=== PATIENT | female | born 1995 | race Caucasian/White ===

== ENCOUNTER 2017-04-18 20:13 | Emergency (ER) | payer OTHER ==
[2017-04-18 20:21] VITALS: BP 130/71; PULSE 90; RESP 20; TEMP 97.8
--- NOTE | 2017-04-18 20:46 | ED ---
ENT HPI - General Chief complaint: Dental/Oral Stated complaint: Dental Pain Time Seen by Provider: 04/18/17 20:24 Source: patient, RN notes reviewed, old records reviewed Mode of arrival: ambulatory Limitations: no limitations - History of Present Illness Initial comments: this is a 21 year old female with CC of right upper wisdom tooth pain that has been chronic, but worse over the past 3 days. She states that she has had her lower wisdom teeth removed, but states that she could not affod to have upper teeth removed. She states that hse has been using orajel over her teeht, but it now feels like there is swelling and pain radiating up towards her sinus and swelling around the gums. Patient reports no pain with jaw movment, denies any fever or chills. - Related Data Home Medications Medication Instructions Recorded Confirmed Levonorgestrel-Ethin Estradiol 1 tab PO DAILY 04/18/17 04/18/17 [Lutera-28 Tablet] Previous Rx's Medication Instructions Recorded Acetaminophen-Codeine 300-30mg 1 tab PO Q8H PRN #15 tablet 04/18/17 [Tylenol #3] Penicillin V Potassium [Pen Vee K] 500 mg PO QID #40 tab 04/18/17 Allergies Allergy/AdvReac Type Severity Reaction Status Date / Time No Known Allergies Allergy Verified 04/18/17 20:48 Review of Systems ROS Statement: Those systems with pertinent positive or pertinent negative responses have been documented in the HPI. ROS Other: All systems not noted in ROS Statement are negative. Past Medical History Past Medical History: No Reported History History of Any Multi-Drug Resistant Organisms: None Reported Past Surgical History: No Surgical Hx Reported Past Psychological History: No Psychological Hx Reported Smoking Status: Current every day smoker Past Alcohol Use History: Occasional Past Drug Use History: None Reported General Exam - General Exam Comments Initial Comments: Well appearing 21 year old female, no distress. Limitations: no limitations General appearance: alert, in no apparent distress Head exam: Present: atraumatic, normocephalic, normal inspection Eye exam: Present: normal appearance, PERRL, EOMI. Absent: scleral icterus, conjunctival injection, periorbital swelling ENT exam: Present: normal exam, mucous membranes moist, TM's normal bilaterally. Absent: normal oropharynx (swelling, erythema, and evidence of compressed right upper wisdom teeth. ) Neck exam: Present: normal inspection. Absent: tenderness, meningismus, lymphadenopathy Respiratory exam: Present: normal lung sounds bilaterally. Absent: respiratory distress, wheezes, rales, rhonchi, stridor Cardiovascular Exam: Present: regular rate, normal rhythm, normal heart sounds. Absent: systolic murmur, diastolic murmur, rubs, gallop, clicks Extremities exam: Present: normal inspection, full ROM, normal capillary refill. Absent: tenderness, pedal edema, joint swelling, calf tenderness Back exam: Present: normal inspection Neurological exam: Present: alert, oriented X3, CN II-XII intact Course Vital Signs 04/18/17 20:19 Temperature 97.8 F Pulse Rate 90 Respiratory 20 Rate Blood Pressure 130/71 O2 Sat by Pulse 100 Oximetry Medical Decision Making - Medical Decision Making This is a 21 year old female with right upper molar pain and wisdom teeth pain. Patient has significant swelling of gums over both teeth, and there appears to be possible begining abscess around right upper wisdom tooth. Patient started on PenVK, given short course of pain medication. Discussed following up with PCP and return to emergency department if any alarming signs or symptoms occur including worsening swelling. Discussed follow up with oral surgeon to have tooth removed. Disposition Clinical Impression: Pain, dental, Dental abscess Disposition: HOME SELF-CARE Condition: Good Instructions: Dental Abscess (ED), Toothache (ED) Additional Instructions: Patient advised to take the medication as prescribed. Recommended follow-up with oral maxilla surgery. Patient should return to the emergency department if any alarming signs or symptoms occur. Take antibiotics and pain medicine as prescribed. You can also use Orajel or Motrin in between. Prescriptions: Acetaminophen-Codeine 300-30mg [Tylenol #3] 1 tab PO Q8H PRN #15 tablet PRN Reason: Pain Penicillin V Potassium [Pen Vee K] 500 mg PO QID #40 tab Referrals: Zuhair Jean MD [Primary Care Provider] - 1-2 days Vu Hernandez DDS [STAFF PHYSICIAN] - 1-2 days Time of Disposition: 20:43
== END 2017-04-18 20:52 | disposition home or self-care (01) ==
LOC: EC 20:13
DX: K04.7 Periapical abscess without sinus (principal); F17.200 Nicotine dependence, unspecified, uncomplicated; Z79.3 Long term (current) use of hormonal contraceptives
CPT/HCPCS: 99283

== ENCOUNTER → 2017-06-08 | Outpatient (CLI) | payer OTHER ==
--- NOTE | 2017-06-08 07:49 | US ---
EXAMINATION TYPE: US OB <= 14 wk fetus DATE OF EXAM: 06/08/2017 COMPARISON: NONE CLINICAL HISTORY: 21-year-old female Z36 CONFIRM DATES; Smoker, Date of LMP: 04/04/2017 Beta HcG (if available): NA EXAM PERFORMED: Transabdominal (TA) FINDINGS: EXAM MEASUREMENTS: GESTATIONAL AGE / DATING Physician Established: ( 9 weeks/2 days) EDC: 01/09/2018 Dates by LMP: (9 weeks/2 days) EDC: 01/09/2018 Dates by First Scan: today Dates by Current Scan for: (9 weeks/0 days +/- 6 days) EDC: 01/11/2018 MATERNAL ANATOMY Uterus: 12.3 x 8.9 x 6.4cm Right Ovary: 1.9 x 2.3 x 1.5cm Left Ovary: not visualized Post CDS / Adnexa: wnl Presence of free fluid: no Presence of corpus luteal cyst: not identified Presence of subchorionic bleed: yes, moderate-sized, along the upper fundal portion of the gestationa l sac measuring = 3.7 x 5.6 x 1.1cm GESTATION / SURVEY CRL: 2.3cm (9 weeks/0 days) Yolk Sac (normal less than 6mm): 2.8mm Heart Rate: 171 bpm, upper limits of normal. Rhythm: Normal IUP: Viable IUP FISH SMOKER NOTES: Single, live IUP,9 weeks/0 days, EDC: 01/11/2018, HR 171bpm, presence of subchorio dalila hemorrhage is noted. IMPRESSION: 1. Single live intrauterine with estimated gestational age of 9 weeks 2 days by LMP. Curren t ultrasound biometry is concordant (9 weeks 0 days). 2. Moderate sized perigestational bleed. 3. heart rate at the upper limits of normal (171 BPM). Short interval follow-up can be consider ed.
[2017-06-08 07:55] LABS: CH 29.9; CHCM 33.1; HCT 39.8 % (34.0-46.0); MCH 29.6 pg (25.0-35.0); MCHC 32.6 g/dL (31.0-37.0); MCV 90.7 fL (80.0-100.0); Mean Platelet Volume 8.9; RBC 4.39 m/uL (3.80-5.40); RDW 13.3 % (11.5-15.5); WBC 9.5 k/uL (3.8-10.6)
[2017-06-08 08:23] LABS: Glucose 86 mg/dL (74-99); Non-African American GFR(MDRD) >60 (>60 ml/min/1.73 sqM)
[2017-06-08 15:36] LABS: Treponemal Ab Non-Reactive (Non-Reactive)
== END | disposition home or self-care (01) ==
LOC: RADUSWWP 07:00
PROVIDERS: ATTEND Obstetrics & Gynecology
DX: Z36.9 Encounter for antenatal screening, unspecified (principal); Z3A.09 9 weeks gestation of pregnancy
CPT/HCPCS: 36415; 76801; 82565; 82947; 85027; 86762; 86777; 86778; 86780; 86850; 86900; 86901; 87340; 87390

== ENCOUNTER → 2017-09-24 | Outpatient (CLI) | payer OTHER ==
[2017-09-24 17:06] LABS: HCT 36.8 % (34.0-46.0); HGB 12.8 gm/dL (11.4-16.0); MCH 31.3 pg (25.0-35.0); MCHC 34.7 g/dL (31.0-37.0); MCV 90.1 fL (80.0-100.0); Mean Platelet Volume 10.1; Platelet Count 156 k/uL (150-450); RBC 4.08 m/uL (3.80-5.40); WBC 10.8 k/uL (3.8-10.6)
== END | disposition home or self-care (01) ==
LOC: LABWHC1 15:49
PROVIDERS: ATTEND Obstetrics & Gynecology
DX: Z34.83 Encounter for supervision of other normal pregnancy, third trimester (principal)
CPT/HCPCS: 36415; 82950; 85027

== ENCOUNTER → 2017-09-29 | Outpatient (CLI) | payer OTHER ==
[2017-09-29 13:04] LABS: Glucose 3 Hour, Gest 44 mg/dL
== END | disposition home or self-care (01) ==
LOC: LABWHC1 08:27
PROVIDERS: ATTEND Obstetrics & Gynecology
DX: O99.810 Abnormal glucose complicating pregnancy (principal); Z3A.00 Weeks of gestation of pregnancy not specified
CPT/HCPCS: 36415; 82951; 82952

== ENCOUNTER 2017-12-24 16:35 | Outpatient (CLI) | payer OTHER ==
[2017-12-24 17:13] VITALS: BP 120/71; PULSE 88; RESP 18; TEMP 98.4
--- NOTE | 2017-12-25 00:08 | P.MSEPDOC ---
Presenting Problems - Arrival Data Date of Arrival on Unit: 12/24/17 Time of Arrival on Unit: 16:40 Mode of Transport: Ambulatory - Complaint OB-Reason for Admission/Chief Complaint: Other Comment: pt arrived c/o lower abd and back cramping all day. pt has been at work. pt unable to time her contractions. denies any leaking of fluid or bleeding Medical History - Information : 2 Para: 1 Term: 1 : 0 Abortions: Spontaneous or Elective: 0 Number of Living Children: 1 - Gestational Age Gestational Age by RASHAAD (wks/days): 37 Weeks and 4 Days - History Complications: Smoker Review of Systems - Review of Systems Constitutional: No problems Breast: No problems ENT: No problems Cardiovascular: No problems Respiratory: No problems Gastrointestinal: No problems Genitourinary: No problems Musculoskeletal: No problems Neurological: No problems Skin: No problems Vital Signs - Temperature Temperature: 98.4 F Temperature Source: Oral - Pulse Right Brachial Pulse Rate: 88 Pulse Assessment Method: Automatic Cuff - Respirations Respiratory Rate: 18 Oxygen Delivery Method: Room Air O2 Sat by Pulse Oximetry: 98 - Blood Pressure Right Arm Blood Pressure: 120/71 Blood Pressure Mean: 87 Blood Pressure Source: Automatic Cuff Medical Screen Scoring (Pre) - Cervical Exam Dilation: 1-3 cm = 1 - Uterine Contractions Frequency: N/A Duration: N/A Intensity: N/A - Maternal Vital Signs Maternal Temperature: N/A Maternal Blood Pressure: N/A Signs of Preeclampsia: N/A Maternal Respirations: N/A - Pain Assessment Pain Location and Character: Abdomen Pain Scale Used: Numeric (1 - 10) Pain Intensity: 5 Pain Management Goal: 2 Pain Description: Cramping Pain Radiation Location: n/a Pain Frequency: Intermittent Pain Duration: 15 Pain Duration Units: Minutes Pain Behavior: Vocalization Pain Aggravating Factors: Walking - Maternal Trauma Maternal Trauma: N/A - Assessment Baseline FHR: 130 Heart Rate - NICHD Category: Category I (Normal) = 0 NST: Reactive Position: N/A Station: N/A - Total Score Total Score (Pre): 1 Medical Screen Scoring (Post) - Cervical Exam Dilation: 1-3 cm = 1 Effacement: More than 50% = 2 Membranes: Intact - Uterine Contractions Frequency: N/A Duration: N/A Intensity: N/A - Maternal Vital Signs Maternal Temperature: N/A Maternal Blood Pressure: N/A Signs of Preeclampsia: N/A Maternal Respirations: N/A - Maternal Trauma Maternal Trauma: N/A - Assessment Heart Rate: 130 Heart Rate - NICHD Category: Category I (Normal) = 0 NST: Reactive Position: N/A Station: N/A - Total Score Total Score (Post): 3 - Post Treatment Level of Risk Post Treatment Level of Risk: Low (0-5) Physician Notification (Post) - Physician Notified Physician Notified Date: 12/24/17 Physician Notified Time: 17:39 Spoke With: dr collins New Order Received: Yes - Notification Comment Comment: november discharge to home Disposition - Disposition OB Disposition: Discharge to home Discharge Date: 12/24/17 Discharge Time: 17:39 I agree with the RN Medical Screening Exam: Yes Risk & Benefit of care provided described in d/c instruction: Yes Diagnosis: FALSE LABOR AT OR AFTER 37 COMPLETED WEEKS OF GESTATION
== END 2017-12-24 17:39 | disposition home or self-care (01) ==
LOC: FBPOP 16:35
PROVIDERS: ATTEND Obstetrics & Gynecology
DX: O47.1 False labor at or after 37 completed weeks of gestation (principal); Z3A.37 37 weeks gestation of pregnancy
CPT/HCPCS: 59025; G0463; 99213

== ENCOUNTER 2018-01-03 13:31 | Outpatient (CLI) | payer OTHER ==
[2018-01-03 13:58] VITALS: BP 127/75; PULSE 97; RESP 18; TEMP 97
--- NOTE | 2018-01-03 18:36 | P.MSEPDOC ---
Presenting Problems - Arrival Data Date of Arrival on Unit: 01/03/18 Time of Arrival on Unit: 13:32 Mode of Transport: Ambulatory - Complaint OB-Reason for Admission/Chief Complaint: Rule Out SROM Medical History - Information : 2 Para: 1 Term: 1 : 0 Abortions: Spontaneous or Elective: 0 Number of Living Children: 1 - Gestational Age Gestational Age by RASHAAD (wks/days): 39 Weeks and 0 Days Review of Systems - Review of Systems Constitutional: No problems Breast: No problems ENT: No problems Cardiovascular: No problems Respiratory: No problems Gastrointestinal: No problems Genitourinary: No problems Musculoskeletal: No problems Neurological: No problems Skin: No problems Vital Signs - Temperature Temperature: 97 F Temperature Source: Temporal Artery Scan - Pulse Right Brachial Pulse Rate: 97 - Respirations Respiratory Rate: 18 Oxygen Delivery Method: Room Air - Blood Pressure Right Arm Blood Pressure: 127/75 Blood Pressure Mean: 92 Blood Pressure Source: Automatic Cuff Medical Screen Scoring (Pre) - Cervical Exam Dilation: Exam Deferred Effacement: Exam Deferred Membranes: Intact - Uterine Contractions Frequency: > 5 minutes apart = 1 Duration: > 40 seconds = 2 Intensity: N/A - Maternal Vital Signs Maternal Temperature: N/A Maternal Blood Pressure: N/A Signs of Preeclampsia: N/A Maternal Respirations: N/A - Pain Assessment Pain Scale Used: Numeric (1 - 10) Pain Intensity: 0 - Assessment Baseline FHR: 115 Heart Rate - NICHD Category: Category I (Normal) = 0 NST: Reactive Position: N/A Station: N/A - Total Score Total Score (Pre): 3 - Level of Risk Level of Risk: Low (0-5) Medical Screen Scoring (Post) - Cervical Exam Membranes: Intact - Total Score Total Score (Post): 0 - Post Treatment Level of Risk Post Treatment Level of Risk: Low (0-5) Physician Notification (Post) - Physician Notified Physician Notified Date: 01/03/18 Physician Notified Time: 14:05 Physician/Practitioner Notified:: Miranda Spoke With: Miranda Rodriguez Order Received: Yes (discharge to home) - Notification Comment Comment: amnisure negative, reactive nst Disposition - Disposition OB Disposition: Triage Discharge Date: 01/03/18 Discharge Time: 14:10 I agree with the RN Medical Screening Exam: Yes Risk & Benefit of care provided described in d/c instruction: Yes Diagnosis: FALSE LABOR AT OR AFTER 37 COMPLETED WEEKS OF GESTATION
== END 2018-01-03 14:10 | disposition home or self-care (01) ==
LOC: FBPOP 13:31
PROVIDERS: ATTEND Obstetrics & Gynecology
DX: O47.1 False labor at or after 37 completed weeks of gestation (principal); Z3A.39 39 weeks gestation of pregnancy
CPT/HCPCS: 59025; 84112; G0463; 99213

== ENCOUNTER 2018-01-04 14:45 | Inpatient (IN) | payer OTHER ==
[2018-01-04] MEDS ORDERED: CARBOPROST TROMETHAMINE 250 MCG/ML 1 ML AMP IM PRN (15:10)
[2018-01-04] MEDS ORDERED: OXYTOCIN 10 UNIT/ML 1 ML VIAL IM PRN (15:10)
[2018-01-04] MEDS ORDERED: TERBUTALINE 1 MG/ML VIAL SQ PRN (15:10)
[2018-01-04] MEDS ORDERED: METHYLERGONOVINE 0.2 MG/ML 1 ML AMP IM PRN (15:10)
[2018-01-04] MEDS ORDERED: LIDOCAINE 1% (PF) 10 MG/ML (30 ML SDV) SQ PRN (15:10)
[2018-01-04] MEDS ORDERED: OXYTOCIN 20 UNITS/1000 ML NS 1,000 ML IV SCH ×2 (15:15→17:44)
[2018-01-04] MEDS: LACTATED RINGERS 1,000 ML IV SCH ×2 (15:23→16:04)
[2018-01-04 15:28] LABS: Basophils % (A) 0 %; Eosinophils # (A) 0.1 k/uL (0-0.7); Eosinophils % (A) 1 %; HCT 40.4 % (34.0-46.0); HGB 13.7 gm/dL (11.4-16.0); Lymphocytes # (A) 2.4 k/uL (1.0-4.8); Lymphocytes % (A) 21 %; MCH 30.7 pg (25.0-35.0); MCHC 33.8 g/dL (31.0-37.0); MCV 90.7 fL (80.0-100.0); Mean Platelet Volume 11.4; Monocytes # (A) 0.5 k/uL (0-1.0); Monocytes % (A) 5 %; Neutrophils # (A) 8.3 k/uL (1.3-7.7); Neutrophils % (A) 72 %; Platelet Count 139 k/uL (150-450); RBC 4.46 m/uL (3.80-5.40); RDW 13.8 % (11.5-15.5); WBC 11.5 k/uL (3.8-10.6)
[2018-01-04] MEDS ORDERED: fentaNYL (PF) 50 MCG/ML 5 ML AMP ONE (15:33)
[2018-01-04] MEDS ORDERED: BUPIVACAINE (PF) 0.25% 30 ML VIAL ONE (15:33)
[2018-01-04] MEDS ORDERED: SODIUM CHLORIDE 0.9% 100 ML BAG ONE (15:33)
[2018-01-04 15:34] VITALS: BMI 38.4
[2018-01-04 15:59] LABS: Large Platelets Present
--- NOTE | 2018-01-04 17:02 | P.HPOB ---
History of Present Illness H&P Date: 01/04/18 Chief Complaint: Contractions This is a 22-year-old female 2 para 1 with an estimated date of confinement of 01/10/2018, estimated gestational age of 39 and one sevenths weeks, who presents to labor and delivery with complaints of contractions that began last night and became stronger today. Her care has been with Dr. Frankel and has been uncomplicated per patient. She denies any rupture of membranes. labs: GC/chlamydia-negative Toxoplasma screen-negative Random glucose-86 Hemoglobin-13 Hepatitis B surface antigen-nonreactive HIV-nonreactive Rubella-immune Syphilis antibody-negative Blood type-A+ Antibody screen-negative Paternity T 21-negative Obstetrical ultrasound-normal anatomy One hour Glucola-163 Three-hour Glucola-within normal limits Group B streptococcus-negative Obstetrical history: . History of 1 vaginal delivery. Review of Systems Constitutional: Denies chills, Denies fever Eyes: denies blurred vision, denies pain Ears, nose, mouth and throat: Denies headache, Denies sore throat Cardiovascular: Denies chest pain, Denies shortness of breath Respiratory: Denies cough Gastrointestinal: Reports abdominal pain (Contractions) Genitourinary: Reports pelvic pain, Reports Musculoskeletal: Reports low back pain Integumentary: Denies pruritus, Denies rash Neurological: Denies numbness, Denies weakness Psychiatric: Denies anxiety, Denies depression Past Medical History Past Medical History: No Reported History History of Any Multi-Drug Resistant Organisms: None Reported Past Surgical History: No Surgical Hx Reported Past Anesthesia/Blood Transfusion Reactions: No Reported Reaction Past Psychological History: No Psychological Hx Reported Smoking Status: Current every day smoker Past Alcohol Use History: Occasional Past Drug Use History: None Reported - Past Family History Mother Family Medical History: No Reported History Medications and Allergies Home Medications Medication Instructions Recorded Confirmed Type Pnv No.95/Ferrous Fum/Folic AC 1 tab PO DAILY 12/24/17 01/04/18 History [ Multivitamin Tablet] Allergies Allergy/AdvReac Type Severity Reaction Status Date / Time No Known Allergies Allergy Verified 01/04/18 14:48 Exam Osteopathic Statement: *. No significant issues noted on an osteopathic structural exam other than those noted in the History and Physical/Consult. - Vital Signs Vital signs: Vital Signs Temp Pulse Resp 01/04/18 15:24 96 F L 85 18 Intake and Output 01/04/18 01/04/18 01/04/18 06:59 14:59 22:59 Other: Weight 101.605 kg 101.605 kg HEENT: Within normal limits Heart: Regular rate and rhythm Lungs: Clear to auscultation bilaterally Abdomen: Cervix: Initially was 7 cm on admission to triage and currently is 9 cm/100%/-1 station. Artificial rupture membranes is carried out with clear fluid noted. heart tones: Reactive Contractions: Every 2-3 minutes Extremities: Negative Homans Results Result Diagrams: 01/04/18 15:10 Abnormal Lab Results - Last 24 Hours (Table) 01/04/18 Range/Units 15:10 WBC 11.5 H (3.8-10.6) k/uL Plt Count 139 L (150-450) k/uL Neutrophils # 8.3 H (1.3-7.7) k/uL Assessment and Plan (1) 39 weeks gestation of Current Visit: Yes Status: Acute Code(s): Z3A.39 - 39 WEEKS GESTATION OF SNOMED Code(s): 65263614 Plan: Admission for active labor. Epidural anesthesia. Expectant management.
--- NOTE | 2018-01-04 17:37 | P.PROBDLV ---
Vaginal Delivery Note - . Vaginal Delivery Note: The patient progressed rather rapidly to complete dilation after artificial rupture of membranes with clear fluid noted. She did receive epidural anesthesia. Once reaching complete, she began pushing. 's head came to a crown. 's head delivered across the perineum followed by the anterior shoulder in a right occiput anterior lie. Nose and mouth were bulb suctioned at the perineum. Infant was placed on mother's abdomen after delivery of the remainder the infant. Cord was clamped and cut and infant was taken to warmer for evaluation. A viable female was noted with scores of 9 at 1 minute and 9 at 5 minutes. weight is pending at this time. Placenta delivered shortly thereafter, intact, with a three-vessel cord. Uterus contracted well after oxytocin was given and uterine massage was carried out. Inspection of the perineum revealed bilateral periurethral abrasions that were noted to be hemostatic. Estimated blood loss is approximately 100 mL's. Both mother and infant are in stable condition.
[2018-01-04] MEDS ORDERED: WITCH HAZEL 1 EACH MED..PAD TOPICAL PRN (17:44)
[2018-01-04] MEDS ORDERED: diphenhydrAMINE 50 MG/ML 1 ML VIAL IVP PRN ×2 (17:44)
[2018-01-04] MEDS ORDERED: LANOLIN CREAM 5 GM TUBE TOPICAL PRN (17:44)
[2018-01-04] MEDS ORDERED: HYDROCORTISONE 2.5% RECTAL CREAM 30 GM TUBE RECTAL PRN (17:44)
[2018-01-04] MEDS ORDERED: ZOLPIDEM 5 MG TAB PO PRN (17:44)
[2018-01-04] MEDS ORDERED: diphenhydrAMINE 50 MG CAP PO PRN (17:44)
[2018-01-04] MEDS ORDERED: SIMETHICONE 80 MG CHEWABLE PO PRN (17:44)
[2018-01-04] MEDS ORDERED: BENZOCAINE/MENTHOL SPRAY 1 GM/SPRAY AEROSOL TOPICAL PRN (17:44)
[2018-01-04] MEDS ORDERED: diphenhydrAMINE 25 MG CAP PO PRN (17:44)
[2018-01-04] MEDS: IBUPROFEN 600 MG TAB PO PRN (21:14)
[2018-01-04] MEDS: SENNOSIDES-DOCUSATE SODIUM 1 EACH TAB PO SCH (21:15)
[2018-01-05] MEDS: ACETAMINOPHEN TAB 325 MG TAB PO PRN ×2 (00:25→12:31)
[2018-01-05] MEDS: IBUPROFEN 600 MG TAB PO PRN ×2 (06:33→18:10)
[2018-01-05 06:41] LABS: Basophils % (A) 0 %; Eosinophils # (A) 0.3 k/uL (0-0.7); Eosinophils % (A) 2 %; HCT 37.5 % (34.0-46.0); HGB 12.8 gm/dL (11.4-16.0); Lymphocytes # (A) 2.6 k/uL (1.0-4.8); Lymphocytes % (A) 23 %; MCHC 34.1 g/dL (31.0-37.0); Mean Platelet Volume 11.6; Monocytes # (A) 0.5 k/uL (0-1.0); Monocytes % (A) 4 %; Neutrophils # (A) 8.1 k/uL (1.3-7.7); Neutrophils % (A) 70 %; Platelet Count 119 k/uL (150-450); RBC 4.12 m/uL (3.80-5.40); RDW 13.7 % (11.5-15.5); WBC 11.6 k/uL (3.8-10.6)
[2018-01-05 07:00] LABS: Large Platelets Present
--- NOTE | 2018-01-05 07:13 | P.DS ---
Providers Date of admission: 01/04/18 15:06 Expected date of discharge: 01/05/18 Attending physician: Cathy Frankel Primary care physician: Stated None - Discharge Diagnosis(es) (1) Normal vaginal delivery Current Visit: Yes Status: Acute Hospital Course: Pt presented in active labor. She underwent a normal vaginal delivery. HEr pp course was uncomplicated. She will be discharged home PPD #1 in stable condition to follow up with me in 6 weeks. Plan - Discharge Summary Discharge Rx Participant: No New Discharge Prescriptions: New Ibuprofen [Motrin] 600 mg PO Q6HR PRN #30 tab PRN Reason: Mild Pain Or Fever >= 100.5 No Action Pnv No.95/Ferrous Fum/Folic AC [ Multivitamin Tablet] 1 tab PO DAILY Discharge Medication List Pnv No.95/Ferrous Fum/Folic AC [ Multivitamin Tablet] 1 tab PO DAILY 03/05 [History] Ibuprofen [Motrin] 600 mg PO Q6HR PRN #30 tab 01/05/18 [Rx] Follow up Appointment(s)/Referral(s): Cathy Frankel DO [Doctor of Osteopathic Medicine] - 6 Weeks Discharge Disposition: HOME SELF-CARE
[2018-01-05] MEDS: SENNOSIDES-DOCUSATE SODIUM 1 EACH TAB PO SCH (07:35)
[2018-01-05 16:52] VITALS: BP 119/83; PULSE 76; RESP 16; TEMP 98.6
== END 2018-01-05 19:00 | disposition home or self-care (01) | DRG 775 ==
LOC: FBPOP 14:45 → 4FBP 15:06
PROVIDERS: ADMIT Obstetrics & Gynecology; ATTEND Obstetrics & Gynecology
PROC: 3E0R3NZ Introduction of Analgesics, Hypnotics, Sedatives into Spinal Canal, Percutaneous Approach (ICD-10-PCS; principal; 2018-01-04)
PROC: 10E0XZZ Delivery of Products of Conception, External Approach (ICD-10-PCS; principal; 2018-01-04)
PROC: 10907ZC Drainage of Amniotic Fluid, Therapeutic from Products of Conception, Via Natural or Artificial Opening (ICD-10-PCS; principal; 2018-01-04)
PROC: 00HU33Z Insertion of Infusion Device into Spinal Canal, Percutaneous Approach (ICD-10-PCS; principal; 2018-01-04)
DX: O99.334 Smoking (tobacco) complicating childbirth (principal); Z37.0 Single live birth; F17.200 Nicotine dependence, unspecified, uncomplicated; Z3A.39 39 weeks gestation of pregnancy
CPT/HCPCS: 59025; 85025; 99213

== ENCOUNTER → 2018-09-14 | Outpatient (CLI) | payer OTHER ==
--- NOTE | 2018-09-14 09:17 | US ---
EXAMINATION TYPE: Transabdominal DATE OF EXAM: 09/14/2018 8:58 AM COMPARISON: NONE CLINICAL HISTORY: Z36 Confirm dates. Confirm Dates, pt has no complaints at this time EXAM PERFORMED: Transvaginal (TV) and Transabdominal (TA) EXAM MEASUREMENTS: GESTATIONAL AGE / DATING Physician Established: Not yet established Dates by LMP: (8 weeks/0 days) EDC: 04/26/2019 Dates by First Scan: No prior Dates by Current Scan for: (8 weeks/0 days) EDC: 04/26/2019 MATERNAL ANATOMY Uterus: 9.4 x 6.5 x 8.2 cm Right Ovary: 3.7 x 2.1 x 2.2 cm Left Ovary: 2.8 x 1.9 x 2.6 cm Post CDS / Adnexa: wnl Presence of free fluid: No Presence of corpus luteal cyst: Right Ovary= 2.2 x 2.0 x 1.9 cm Presence of subchorionic bleed: No GESTATION / SURVEY CRL: 1.7 cm (8 weeks/0 days) MSD: wnl Yolk Sac (normal less than 6mm): 3mm Heart Rate: 161 bpm Rhythm: Normal IUP: Viable IUP Date of LMP: 07/20/2018 Single, viable IUP/ No abnormality visualized at this time IMPRESSION: Single viable intrauterine of 8 weeks 0 days with a heart rate 161.
== END | disposition home or self-care (01) ==
LOC: RADUSWWP 08:28
PROVIDERS: ATTEND Obstetrics & Gynecology
DX: Z36.89 Encounter for other specified antenatal screening (principal)
CPT/HCPCS: 76801; 76817

== ENCOUNTER 2019-04-16 14:23 | Outpatient (CLI) | payer OTHER ==
[2019-04-16 15:46] VITALS: BP 105/62; PULSE 84; RESP 16; TEMP 98.4
--- NOTE | 2019-05-06 08:33 | P.MSEPDOC ---
Presenting Problems - Arrival Data Date of Arrival on Unit: 04/16/19 Time of Arrival on Unit: 14:34 Mode of Transport: Ambulatory - Complaint OB-Reason for Admission/Chief Complaint: Other Comment: pt arrived c/o losing her mucus plug a few days ago and c/o feeling like an air bubble in her vaginal area. pt denies any bleeding or leaking of fluid Medical History - Information : 3 Para: 2 Term: 2 : 0 Abortions: Spontaneous or Elective: 0 Number of Living Children: 2 - Gestational Age Gestational Age by RASHAAD (wks/days): 38 Weeks and 4 Days - History Complications: Smoker Review of Systems - Review of Systems Constitutional: No problems Breast: No problems ENT: No problems Cardiovascular: No problems Respiratory: No problems Gastrointestinal: No problems Genitourinary: No problems Musculoskeletal: No problems Neurological: No problems Skin: No problems Vital Signs - Temperature Temperature: 98.4 F Temperature Source: Oral - Pulse Right Brachial Pulse Rate: 84 Pulse Assessment Method: Automatic Cuff - Respirations Respiratory Rate: 16 Oxygen Delivery Method: Room Air O2 Sat by Pulse Oximetry: 97 - Blood Pressure Right Arm Blood Pressure: 105/62 Blood Pressure Mean: 76 Blood Pressure Source: Automatic Cuff Medical Screen Scoring (Pre) - Cervical Exam Dilation: 1-3 cm = 1 Effacement: More than 50% = 2 Membranes: Intact - Uterine Contractions Frequency: > 5 minutes apart = 1 Duration: N/A Intensity: N/A - Maternal Vital Signs Maternal Temperature: N/A Maternal Blood Pressure: N/A Signs of Preeclampsia: N/A Maternal Respirations: N/A - Maternal Trauma Maternal Trauma: N/A - Assessment - Baby A Baseline FHR: 130 Heart Rate - NICHD Category: Category I (Normal) = 0 NST: Reactive Position: N/A Station: N/A - Total Score - Baby A Total Score - Baby A: 4 - Total Score - Baby B Total Score - Baby B: 4 - Total Score - Baby C Total Score - Baby C: 4 - Level of Risk - Baby A Level of Risk - Baby A: Low (0-5) - Level of Risk - Baby B Level of Risk - Baby B: Low (0-5) - Level of Risk - Baby C Level of Risk - Baby C: Low (0-5) Physician Notification (Post) - Physician Notified Physician Notified Date: 04/16/19 Physician Notified Time: 15:30 Spoke With: Dr. Quiles New Order Received: Yes - Notification Comment Comment: may discharge to home undelivered with instructions Disposition - Disposition OB Disposition: Discharge to home Discharge Date: 04/16/19 Discharge Time: 15:45 I agree with the RN Medical Screening Exam: Yes Risk & Benefit of care provided described in d/c instruction: Yes Diagnosis: FALSE LABOR AT OR AFTER 37 COMPLETED WEEKS OF GESTATION
== END 2019-04-16 15:45 | disposition home or self-care (01) ==
LOC: FBPOP 14:23
PROVIDERS: ATTEND Obstetrics & Gynecology
DX: O47.1 False labor at or after 37 completed weeks of gestation (principal); O99.333 Smoking (tobacco) complicating pregnancy, third trimester; F17.200 Nicotine dependence, unspecified, uncomplicated; Z3A.38 38 weeks gestation of pregnancy
CPT/HCPCS: 59025; G0463; 99213

== ENCOUNTER 2019-04-24 06:08 | Inpatient (IN) | payer OTHER ==
[2019-04-24] MEDS ORDERED: LIDOCAINE 0.5% (PF) 5 MG/ML (50 ML SDV) SQ PRN (06:35)
[2019-04-24] MEDS ORDERED: OXYTOCIN 10 UNIT/ML 1 ML VIAL IM PRN (06:35)
[2019-04-24] MEDS ORDERED: METHYLERGONOVINE 0.2 MG/ML 1 ML AMP IM PRN (06:35)
[2019-04-24] MEDS ORDERED: TERBUTALINE 1 MG/ML VIAL SQ PRN (06:35)
[2019-04-24] MEDS ORDERED: CARBOPROST TROMETHAMINE 250 MCG/ML 1 ML AMP IM PRN (06:35)
[2019-04-24 06:45] VITALS: BMI 37.0
[2019-04-24] MEDS ORDERED: OXYTOCIN 30 UNITS/500 ML NS 30 UNIT in SALINE 1 500ML.BAG IV SCH (06:45)
[2019-04-24 06:51] LABS: Basophils # (A) 0.1 k/uL (0-0.2); Basophils % (A) 1 %; Eosinophils # (A) 0.2 k/uL (0-0.7); Eosinophils % (A) 2 %; HCT 39.8 % (34.0-46.0); HGB 12.5 gm/dL (11.4-16.0); Lymphocytes # (A) 2.6 k/uL (1.0-4.8); Lymphocytes % (A) 25 %; MCH 29.8 pg (25.0-35.0); MCHC 31.5 g/dL (31.0-37.0); MCV 94.6 fL (80.0-100.0); Mean Platelet Volume 11.8; Monocytes # (A) 0.6 k/uL (0-1.0); Monocytes % (A) 6 %; Neutrophils # (A) 6.7 k/uL (1.3-7.7); Neutrophils % (A) 65 %; Platelet Count 189 k/uL (150-450); RDW 13.8 % (11.5-15.5); WBC 10.4 k/uL (3.8-10.6)
[2019-04-24] MEDS: LACTATED RINGERS 1,000 ML IV SCH ×2 (06:55→09:34)
[2019-04-24] MEDS ORDERED: SODIUM CHLORIDE 0.9% 100 ML BAG ONE (09:16)
[2019-04-24] MEDS ORDERED: fentaNYL (PF) 50 MCG/ML 5 ML AMP ONE (09:16)
[2019-04-24] MEDS ORDERED: ROPIVACAINE 5MG/ML 20ML VIAL ONE (09:16)
--- NOTE | 2019-04-24 12:19 | P.HPOB ---
History of Present Illness H&P Date: 04/24/19 Chief Complaint: Induction of LAbor 23-year-old presents at 39 weeks and 5 days for induction of labor. Her cervix is 2cm dilated, 70% effaced, and -2 station. She is dania irregularly. heart tones 130 with moderate variability and reactive. Review of Systems All systems: negative Constitutional: Denies chills, Denies fever Eyes: denies blurred vision, denies pain Ears, nose, mouth and throat: Denies headache, Denies sore throat Cardiovascular: Denies chest pain, Denies shortness of breath Respiratory: Denies cough Gastrointestinal: Denies abdominal pain, Denies diarrhea, Denies nausea, Denies vomiting Genitourinary: Denies dysuria, Denies hematuria Musculoskeletal: Denies myalgias Integumentary: Denies pruritus, Denies rash Neurological: Denies numbness, Denies weakness Psychiatric: Denies anxiety, Denies depression Endocrine: Denies fatigue, Denies weight change Past Medical History Past Medical History: No Reported History Additional Past Medical History / Comment(s): Obstetric history: She's had 2 previous vaginal deliveries. This is her third . She's had care with me since the first trimester. Blood type A+, antibody is negative, rubella immune, hepatitis B-, HIV nonreactive, RPR nonreactive, GBS negative. History of Any Multi-Drug Resistant Organisms: None Reported Past Surgical History: No Surgical Hx Reported Past Anesthesia/Blood Transfusion Reactions: No Reported Reaction Past Psychological History: No Psychological Hx Reported Smoking Status: Current every day smoker Past Alcohol Use History: None Reported Past Drug Use History: None Reported - Past Family History Mother Family Medical History: No Reported History Father Additional Family Medical History / Comment(s): degenerative lumbar disk Medications and Allergies Home Medications Medication Instructions Recorded Confirmed Type Pnv No.95/Ferrous Fum/Folic AC 1 tab PO DAILY 12/24/17 04/24/19 History [ Multivitamin Tablet] Allergies Allergy/AdvReac Type Severity Reaction Status Date / Time No Known Allergies Allergy Verified 04/24/19 11:51 Exam Osteopathic Statement: *. No significant issues noted on an osteopathic struct ural exam other than those noted in the History and Physical/Consult. Vital Signs Temp Pulse Resp BP Pulse Ox 04/24/19 06:34 97.7 F 87 18 105/65 99 Intake and Output 04/23/19 04/24/19 04/24/19 22:59 06:59 14:59 Other: Weight 97.976 kg Heart: Regular rate and rhythm Lungs: Clear to auscultation bilaterally Abdomen: Soft, nontender Extremities: Negative Homans sign Results Result Diagrams: 04/24/19 06:45 Assessment and Plan (1) Normal labor Current Visit: Yes Status: Acute Code(s): O80 - ENCOUNTER FOR FULL-TERM UNCOMPLICATED DELIVERY; Z37.9 - OUTCOME OF DELIVERY, UNSPECIFIED SNOMED Code(s): 76652284 Plan: 1. Induction of labor with amniotomy and Pitocin 2. Anticipate normal vaginal delivery
[2019-04-24] MEDS ORDERED: diphenhydrAMINE 50 MG CAP PO PRN (12:20)
[2019-04-24] MEDS ORDERED: diphenhydrAMINE 50 MG/ML 1 ML VIAL IVP PRN ×2 (12:20)
[2019-04-24] MEDS ORDERED: ACETAMINOPHEN TAB 325 MG TAB PO PRN (12:20)
[2019-04-24] MEDS ORDERED: SIMETHICONE 80 MG CHEWABLE PO PRN (12:20)
[2019-04-24] MEDS ORDERED: ZOLPIDEM 5 MG TAB PO PRN (12:20)
[2019-04-24] MEDS ORDERED: WITCH HAZEL 1 EACH MED..PAD TOPICAL PRN (12:20)
[2019-04-24] MEDS ORDERED: BENZOCAINE/MENTHOL SPRAY 1 GM/SPRAY AEROSOL TOPICAL PRN (12:20)
[2019-04-24] MEDS ORDERED: LANOLIN CREAM 5 GM TUBE TOPICAL PRN (12:20)
[2019-04-24] MEDS ORDERED: diphenhydrAMINE 25 MG CAP PO PRN (12:20)
[2019-04-24] MEDS ORDERED: HYDROCORTISONE 2.5% RECTAL CREAM 30 GM TUBE RECTAL PRN (12:20)
--- NOTE | 2019-04-24 12:20 | P.PROBDLV ---
Vaginal Delivery Note - . Vaginal Delivery Note: 23-year-old presents at 39 weeks and 5 days for induction of labor. Her cervix is 2cm dilated, 70% effaced, and -2 station. She is dania irregularly. heart tones 130 with moderate variability and reactive. Amniotomy was performed after 7:30 in the morning. Pitocin had also been started. She progressed and did get an epidural. Her cervix was completely dilated at 11:55 AM. She pushed, and delivered a viable female infant over intact perineum under epidural anesthesia at 1207. Head delivered OA, anterior shoulder delivered gentle downward guidance followed by posterior shoulder and rest of body. Nose and mouth bulb suctioned, cord clamped and cut, placed mother's abdomen. Apgars 9, 9, weight 7 lbs. 12 oz. Placenta delivered spontaneously, intact with three-vessel cord at total 9. Vagina, cervix, perineum inspected. A left lateral first-degree laceration was repaired with a [id number] stitch of 3-0 Vicryl. A right periurethral laceration was repaired with 3-0 Vicryl. Estimated blood loss 200 mL mother and baby in stable condition.
[2019-04-24] MEDS ORDERED: OXYTOCIN 20 UNITS/1000 ML NS 1,000 ML IV SCH (12:30)
[2019-04-24 12:53] VITALS: RESP 16
[2019-04-24] MEDS: IBUPROFEN 600 MG TAB PO PRN ×2 (15:15→21:32)
[2019-04-25] MEDS: SENNOSIDES-DOCUSATE SODIUM 1 EACH TAB PO SCH ×2 (02:32→10:01)
--- NOTE | 2019-04-25 06:35 | P.DS ---
Providers Date of admission: 04/24/19 06:08 Expected date of discharge: 04/25/19 Attending physician: Cathy Frankel Primary care physician: Stated None - Discharge Diagnosis(es) (1) Normal labor Current Visit: Yes Status: Resolved (2) Normal vaginal delivery Current Visit: No Status: Acute Hospital Course: Pt presented for induction of labor. She underwent a normal vaginal delivery without complication. HEr pp course was uneventful. She will be discharged home PPD #1 in stable condition to follow up with me in 6 weeks. Plan - Discharge Summary New Discharge Prescriptions: New Ibuprofen [Motrin] 600 mg PO Q6HR PRN #30 tab PRN Reason: Mild Pain Or Fever >= 100.5 No Action Pnv No.95/Ferrous Fum/Folic AC [ Multivitamin Tablet] 1 tab PO DAILY Discharge Medication List Pnv No.95/Ferrous Fum/Folic AC [ Multivitamin Tablet] 1 tab PO DAILY 12/24/17 [History] Ibuprofen [Motrin] 600 mg PO Q6HR PRN #30 tab 04/25/19 [Rx] Follow up Appointment(s)/Referral(s): Cathy Frankel DO [Doctor of Osteopathic Medicine] - 6 Weeks Discharge Disposition: HOME SELF-CARE
[2019-04-25] MEDS: IBUPROFEN 600 MG TAB PO PRN (07:44)
[2019-04-25 07:47] VITALS: BP 125/69; PULSE 73; TEMP 97.8
[2019-04-25 08:05] LABS: Basophils % (A) 0 %; Eosinophils # (A) 0.2 k/uL (0-0.7); Eosinophils % (A) 2 %; HCT 38.8 % (34.0-46.0); Lymphocytes # (A) 2.7 k/uL (1.0-4.8); Lymphocytes % (A) 21 %; MCHC 33.5 g/dL (31.0-37.0); MCV 92.4 fL (80.0-100.0); Mean Platelet Volume 10.8; Monocytes # (A) 0.5 k/uL (0-1.0); Monocytes % (A) 4 %; Neutrophils # (A) 9.3 k/uL (1.3-7.7); Neutrophils % (A) 72 %; Platelet Count 181 k/uL (150-450); RDW 13.5 % (11.5-15.5)
== END 2019-04-25 13:30 | disposition home or self-care (01) | DRG 807 ==
LOC: 4FBP 06:08
PROVIDERS: ADMIT Obstetrics & Gynecology; ATTEND Obstetrics & Gynecology
PROC: 10E0XZZ Delivery of Products of Conception, External Approach (ICD-10-PCS; principal; 2019-04-24)
PROC: 0HQ9XZZ Repair Perineum Skin, External Approach (ICD-10-PCS; 2019-04-24)
PROC: 00HU33Z Insertion of Infusion Device into Spinal Canal, Percutaneous Approach (ICD-10-PCS; 2019-04-24)
PROC: 3E0R3BZ Introduction of Anesthetic Agent into Spinal Canal, Percutaneous Approach (ICD-10-PCS; 2019-04-24)
PROC: 10907ZC Drainage of Amniotic Fluid, Therapeutic from Products of Conception, Via Natural or Artificial Opening (ICD-10-PCS; 2019-04-24)
PROC: 3E033VJ Introduction of Other Hormone into Peripheral Vein, Percutaneous Approach (ICD-10-PCS; 2019-04-24)
DX: O99.334 Smoking (tobacco) complicating childbirth (principal); Z37.0 Single live birth; O70.0 First degree perineal laceration during delivery; F17.200 Nicotine dependence, unspecified, uncomplicated; O71.82 Other specified trauma to perineum and vulva; Z3A.39 39 weeks gestation of pregnancy
CPT/HCPCS: 85025; 86850; 86900; 86901

== ENCOUNTER 2020-06-20 18:06 | Emergency (ER) | payer OTHER ==
[2020-06-20] MEDS ORDERED: KETOROLAC 15 MG/ML 1 ML VIAL IVP STA (19:03)
[2020-06-20] MEDS ORDERED: SODIUM CHLORIDE 0.9% 1,000 ML IV STA (19:03)
--- NOTE | 2020-06-20 19:13 | ED ---
Abdominal Pain HPI - General Chief Complaint: Abdominal Pain Stated Complaint: abd pain Time Seen by Provider: 06/20/20 18:55 Source: patient, RN notes reviewed, old records reviewed Mode of arrival: ambulatory Limitations: no limitations - History of Present Illness Initial Comments: Patient is a 24-year-old female she presents emergency Department today with complaints of right lower abdominal pain and flank pain that seemed to start after having intercourse this afternoon. She reports the pain seemed to go away within 1 she had a bowel movement later this afternoon and was sitting and standing she noticed the pain seemed to come and gone. He reports sharp and stabbing. She reports that her last menstrual period was one month ago. She denies any fevers or chills nausea or vomiting. She denies dysuria. She states that she has a nexplanon implant. - Related Data Home Medications Medication Instructions Recorded Confirmed No Known Home Medications 06/20/20 06/20/20 Allergies Allergy/AdvReac Type Severity Reaction Status Date / Time No Known Allergies Allergy Verified 06/20/20 19:59 Review of Systems ROS Statement: Those systems with pertinent positive or pertinent negative responses have been documented in the HPI. ROS Other: All systems not noted in ROS Statement are negative. Past Medical History Past Medical History: No Reported History Additional Past Medical History / Comment(s): Obstetric history: She's had 2 pr evious vaginal deliveries. This is her third . She's had care with me since the first trimester. Blood type A+, antibody is negative, rubella immune, hepatitis B-, HIV nonreactive, RPR nonreactive, GBS negative. History of Any Multi-Drug Resistant Organisms: None Reported Past Surgical History: No Surgical Hx Reported Past Anesthesia/Blood Transfusion Reactions: No Reported Reaction Past Psychological History: No Psychological Hx Reported Smoking Status: Current every day smoker Past Alcohol Use History: Rare Past Drug Use History: None Reported - Past Family History Mother Family Medical History: No Reported History Father Additional Family Medical History / Comment(s): degenerative lumbar disk General Exam - General Exam Comments Initial Comments: 24-year-old female. No distress. Limitations: no limitations Head exam: Present: atraumatic, normocephalic, normal inspection Eye exam: Present: normal appearance, PERRL, EOMI. Absent: scleral icterus, conjunctival injection, periorbital swelling ENT exam: Present: normal exam Neck exam: Present: normal inspection. Absent: tenderness, meningismus, lymphadenopathy Respiratory exam: Present: normal lung sounds bilaterally. Absent: respiratory distress, wheezes, rales, rhonchi, stridor Cardiovascular Exam: Present: regular rate, normal rhythm, normal heart sounds. Absent: systolic murmur, diastolic murmur, rubs, gallop, clicks GI/Abdominal exam: Present: soft, tenderness (Minimal right lower quadrant tenderness), normal bowel sounds. Absent: distended, guarding, rebound, rigid Extremities exam: Present: normal inspection, full ROM, normal capillary refill. Absent: tenderness, pedal edema, joint swelling, calf tenderness Back exam: Present: normal inspection Neurological exam: Present: alert, oriented X3, CN II-XII intact Psychiatric exam: Present: normal affect, normal mood Skin exam: Present: warm, dry, intact, normal color. Absent: rash Course Vital Signs 06/20/20 06/20/20 18:21 20:49 Temperature 98.7 F Pulse Rate 92 72 Respiratory 18 16 Rate Blood Pressure 113/76 115/67 O2 Sat by Pulse 98 96 Oximetry Medical Decision Making - Medical Decision Making Residual female presents the ER today for evaluation for right-sided abdominal pain after intercourse. At this time Patient has no vaginal bleeding or discharge. Denies any chance of . Labs reviewed and unremarkable. All shows completed shows some free fluid in the pelvis discussed she put could've possibly had a ruptured ovarian cyst during the time. Denies any concern for vaginal discharge. I discussed the Patient to take antiplatelet her medicine. She does feel improved after Toradol. Discussed return parameters. Discussed DESIGN CONSULTANT follow-up - Lab Data Result diagrams: 06/20/20 19:20 06/20/20 19:20 Lab Results 06/20/20 06/20/20 06/20/20 Range/Units 19:20 19:20 19:20 WBC 7.2 (3.8-10.6) k/uL RBC 5.08 (3.80-5.40) m/uL Hgb 14.8 (11.4-16.0) gm/dL Hct 45.7 (34.0-46.0) % MCV 90.1 (80.0-100.0) fL MCH 29.2 (25.0-35.0) pg MCHC 32.4 (31.0-37.0) g/dL RDW 12.7 (11.5-15.5) % Plt Count 143 L (150-450) k/uL MPV 12.3 Neutrophils % 57 % Lymphocytes % 32 % Monocytes % 7 % Eosinophils % 3 % Basophils % 0 % Neutrophils # 4.1 (1.3-7.7) k/uL Lymphocytes # 2.3 (1.0-4.8) k/uL Monocytes # 0.5 (0-1.0) k/uL Eosinophils # 0.2 (0-0.7) k/uL Basophils # 0.0 (0-0.2) k/uL Sodium (137-145) mmol/L Potassium (3.5-5.1) mmol/L Chloride (98-107) mmol/L Carbon Dioxide (22-30) mmol/L Anion Gap mmol/L BUN (7-17) mg/dL Creatinine (0.52-1.04) mg/dL Est GFR (CKD-EPI)AfAm (>60 ml/min/1.73 sqM) Est GFR (CKD-EPI)NonAf (>60 ml/min/1.73 sqM) Glucose (74-99) mg/dL Calcium (8.4-10.2) mg/dL Total Bilirubin (0.2-1.3) mg/dL AST (14-36) U/L ALT (4-34) U/L Alkaline Phosphatase (38-126) U/L Total Protein (6.3-8.2) g/dL Albumin (3.5-5.0) g/dL Urine Color Yellow Urine Appearance Cloudy H (Clear) Urine pH 5.5 (5.0-8.0) Ur Specific Triangle 1.032 (1.001-1.035) Urine Protein Trace H (Negative) Urine Glucose (UA) Negative (Negative) Urine Ketones Negative (Negative) Urine Blood Negative (Negative) Urine Nitrite Negative (Negative) Urine Bilirubin Negative (Negative) Urine Urobilinogen <2.0 (<2.0) mg/dL Ur Leukocyte Esterase Trace H (Negative) Urine RBC 1 (0-5) /hpf Urine WBC 1 (0-5) /hpf Ur Squamous Epith Cells 12 H (0-4) /hpf Urine Bacteria Rare H (None) /hpf Urine Mucus Few H (None) /hpf Urine HCG, Qual Not Detected (Not Detectd) 06/20/20 Range/Units 19:20 WBC (3.8-10.6) k/uL RBC (3.80-5.40) m/uL Hgb (11.4-16.0) gm/dL Hct (34.0-46.0) % MCV (80.0-100.0) fL MCH (25.0-35.0) pg MCHC (31.0-37.0) g/dL RDW (11.5-15.5) % Plt Count (150-450) k/uL MPV Neutrophils % % Lymphocytes % % Monocytes % % Eosinophils % % Basophils % % Neutrophils # (1.3-7.7) k/uL Lymphocytes # (1.0-4.8) k/uL Monocytes # (0-1.0) k/uL Eosinophils # (0-0.7) k/uL Basophils # (0-0.2) k/uL Sodium 136 L (137-145) mmol/L Potassium 4.5 (3.5-5.1) mmol/L Chloride 106 (98-107) mmol/L Carbon Dioxide 24 (22-30) mmol/L Anion Gap 6 mmol/L BUN 11 (7-17) mg/dL Creatinine 0.82 (0.52-1.04) mg/dL Est GFR (CKD-EPI)AfAm >90 (>60 ml/min/1.73 sqM) Est GFR (CKD-EPI)NonAf >90 (>60 ml/min/1.73 sqM) Glucose 93 (74-99) mg/dL Calcium 9.1 (8.4-10.2) mg/dL Total Bilirubin 0.5 (0.2-1.3) mg/dL AST 26 (14-36) U/L ALT 18 (4-34) U/L Alkaline Phosphatase 43 (38-126) U/L Total Protein 7.1 (6.3-8.2) g/dL Albumin 4.4 (3.5-5.0) g/dL Urine Color Urine Appearance (Clear) Urine pH (5.0-8.0) Ur Specific Triangle (1.001-1.035) Urine Protein (Negative) Urine Glucose (UA) (Negative) Urine Ketones (Negative) Urine Blood (Negative) Urine Nitrite (Negative) Urine Bilirubin (Negative) Urine Urobilinogen (<2.0) mg/dL Ur Leukocyte Esterase (Negative) Urine RBC (0-5) /hpf Urine WBC (0-5) /hpf Ur Squamous Epith Cells (0-4) /hpf Urine Bacteria (None) /hpf Urine Mucus (None) /hpf Urine HCG, Qual (Not Detectd) - Radiology Data Radiology results: report reviewed History fluid in cul-de-sac. No signs of ovarian torsion. No solid adnexal mass. Normal uterus. Disposition Clinical Impression: Right sided abdominal pain, Ovarian cyst rupture Disposition: HOME SELF-CARE Condition: Good Instructions (If sedation given, give patient instructions): Abdominal Pain (ED) Additional Instructions: Take Motrin Tylenol for pain. Follow-up with PCP. Return to ED if any alarming signs or symptoms occur. Is patient prescribed a controlled substance at d/c from ED?: No Referrals: Zuhair Jean MD [Primary Care Provider] - 1-2 days Time of Disposition: 21:06
[2020-06-20 19:37] LABS: Appearance,Urine Cloudy (Clear); Bacteria,Urine Rare /hpf; Bilirubin,Urine Negative (Negative); Blood,Urine Negative (Negative); Color,Urine Yellow; Glucose,Urine (UA) Negative (Negative); Ketones,Urine Negative (Negative); Leukocyte Esterase,Urine Trace (Negative); Mucus,Urine Few /hpf; Nitrite,Urine Negative (Negative); PH, Urine 5.5 (5.0-8.0); Protein,Urine Trace (Negative); RBC,Urine 1 /hpf (0-5); Specific Gravity,Urine 1.032 (1.001-1.035); Squamous Epithelial Cell,Urine 12 /hpf (0-4); Urobilinogen,Urine <2.0 mg/dL (<2.0); WBC,Urine 1 /hpf (0-5)
--- NOTE | 2020-06-20 20:37 | US ---
EXAMINATION TYPE: US transvaginal DATE OF EXAM: 06/20/2020 COMPARISON: NONE CLINICAL HISTORY: RLQ pain. RLQ pain x 6.5 hours. . TECHNIQUE: Transvaginal (TV). Date of LMP: 05/21/2020 EXAM MEASUREMENTS: Uterus: 8.7 x 6.2 x 4.4 cm Endometrial Stripe: measured at 0.66 cm Right Ovary: 4.1 x 2.7 x 2.1 cm Left Ovary: 2.6 x 1.5 x 1.3 cm 1. Uterus: Anteverted 2. Endometrium: Measures 0.66, appears indistinct. 3. Right Ovary: Appears slightly enlarged and heterogeneous. 4. Left Ovary: Hypoechoic-anechoic area seen measurin.2 x 0.5 x 0.9 cm. Spectral, color and waveform doppler imaging shows arterial and venous flow within the ovaries. Art erial waveform within the left ovary appears to be slightly higher resistant. 5. Bilateral Adnexa: Fluid visualized in bilateral adnexa, not completely anechoic. 6. Posterior cul-de-sac: Fluid visualized, not completely anechoic. IMPRESSION: There is free fluid in the cul-de-sac. No evidence of ovarian torsion. No solid adnexal mass. Normal uterus.
[2020-06-20 20:38] LABS: ALT 18 U/L (4-34); AST 26 U/L (14-36); African American GFR (CKD) >90 (>60 ml/min/1.73 sqM); Albumin 4.4 g/dL (3.5-5.0); Alkaline Phosphatase 43 U/L (38-126); Anion Gap 6 mmol/L; Blood Urea Nitrogen 11 mg/dL (7-17); Calcium 9.1 mg/dL (8.4-10.2); Carbon Dioxide 24 mmol/L (22-30); Chloride 106 mmol/L (98-107); Glucose 93 mg/dL (74-99); Non-African American GFR(CKD) >90 (>60 ml/min/1.73 sqM); Potassium 4.5 mmol/L (3.5-5.1); Sodium 136 mmol/L (137-145); Total Bilirubin 0.5 mg/dL (0.2-1.3); Total Protein 7.1 g/dL (6.3-8.2)
[2020-06-20 20:50] VITALS: BP 115/67; PULSE 72; RESP 16
[2020-06-20 20:55] LABS: Basophils % (A) 0 %; Eosinophils # (A) 0.2 k/uL (0-0.7); Eosinophils % (A) 3 %; HCT 45.7 % (34.0-46.0); HGB 14.8 gm/dL (11.4-16.0); Lymphocytes # (A) 2.3 k/uL (1.0-4.8); Lymphocytes % (A) 32 %; MCH 29.2 pg (25.0-35.0); MCHC 32.4 g/dL (31.0-37.0); MCV 90.1 fL (80.0-100.0); Mean Platelet Volume 12.3; Monocytes # (A) 0.5 k/uL (0-1.0); Monocytes % (A) 7 %; Neutrophils # (A) 4.1 k/uL (1.3-7.7); Neutrophils % (A) 57 %; Platelet Count 143 k/uL (150-450); RBC 5.08 m/uL (3.80-5.40); RDW 12.7 % (11.5-15.5); WBC 7.2 k/uL (3.8-10.6)
[2020-06-20 21:19] VITALS: TEMP 98.3
== END 2020-06-20 21:20 | disposition home or self-care (01) ==
LOC: EC 18:06
DX: N83.209 Unspecified ovarian cyst, unspecified side (principal); F17.200 Nicotine dependence, unspecified, uncomplicated
CPT/HCPCS: 36415; 80053; 85025; 81001; 81025; 93975; 76830; 99284; 96374; 96361; J1885

== ENCOUNTER 2020-10-21 16:44 | Emergency (ER) | payer OTHER ==
--- NOTE | 2020-10-21 18:54 | ED ---
General Adult HPI <Greyson Glover - Last Filed: 10/21/20 18:52> <Daxa Kim - Last Filed: 10/22/20 02:59> - General Stated complaint: Chest Pain - History of Present Illness Initial comments: 25-year-old female who is on depo shot for control and current everyday smoker presenting for chest discomfort, concern URI. Patient states that she's had a very slight cough as well as some chest discomfort on and off in the right side of the chest. She denies pressure jaw pain arm pain abdominal pain nausea vomiting epigastric pain diaphoresis. Patient denies any history of premature CAD with the family she denies sustaining exertional. Patient states it feels sort of like when she has a upper respiratory infection in the past. She denies fevers she states she is a slight cough. She denies hemoptysis leg swelling calf pain she denies any history of DVT pulmonary embolism. She denies any recent surgeries she denies she denies immobilization or travel. Patient denies any history of cancer. Patient is no additional complaints or co ncerns. Remaining review of system negative (Daxa Kim) - Related Data Previous Rx's Medication Instructions Recorded predniSONE 50 mg PO DAILY 3 Days #3 tab 10/22/20 Allergies Allergy/AdvReac Type Severity Reaction Status Date / Time No Known Allergies Allergy Verified 10/21/20 18:55 Review of Systems ROS Other: All systems not noted in ROS Statement are negative. <Greyson Glover - Last Filed: 10/21/20 18:52> ROS Other: All systems not noted in ROS Statement are negative. <Daxa Kim - Last Filed: 10/22/20 02:59> ROS Statement: Those systems with pertinent positive or pertinent negative responses have been documented in the HPI. Past Medical History Past Medical History: No Reported History Additional Past Medical History / Comment(s): Obstetric history: She's had 2 previous vaginal deliveries. This is her third . She's had care with me since the first trimester. Blood type A+, antibody is negative, rubella immune, hepatitis B-, HIV nonreactive, RPR nonreactive, GBS negative. History of Any Multi-Drug Resistant Organisms: None Reported Past Surgical History: No Surgical Hx Reported Past Anesthesia/Blood Transfusion Reactions: No Reported Reaction Past Psychological History: No Psychological Hx Reported Smoking Status: Current every day smoker Past Alcohol Use History: Rare Past Drug Use History: None Reported - Past Family History Mother Family Medical History: No Reported History Father Additional Family Medical History / Comment(s): degenerative lumbar disk <Greyson Glover - Last Filed: 10/21/20 18:52> General Exam <Daxa Kim Reid - Last Filed: 10/22/20 02:59> - General Exam Comments Initial Comments: General: The patient is awake and alert, in no distress, and does not appear acutely ill. Eye: Pupils are equal, round and reactive to light, extra-ocular movements are intact. No nystagmus. There is normal conjunctiva bilaterally. No signs of icterus. Ears, nose, mouth and throat: There are moist mucous membranes and no oral lesions. Neck: The neck is supple, there is no tenderness or JVD. Cardiovascular: There is a regular rate and rhythm. No murmur, rub or gallop is appreciated. Respiratory: Lungs are clear to auscultation, respirations are non-labored, breath sounds are equal. No wheezes, stridor, rales, or rhonchi. Gastrointestinal: Soft, non-distended, non-tender abdomen without masses or organomegaly noted. There is no rebound or guarding present. Musculoskeletal: Normal ROM, no tenderness. Strength 5/5. Sensation intact. Pulses equal bilaterally 2+. Neurological: A&O x 3. CN II-XII intact, There are no obvious motor or sensory deficits. Coordination appears grossly intact. Speech is normal. Skin: Skin is warm and dry and no rashes or lesions are noted. No lower extremity edema or calf pain Psychiatric: Cooperative, appropriate mood & affect, normal judgment. (Daxa Kim) Course Vital Signs 10/21/20 10/21/20 10/21/20 18:52 22:23 23:00 Temperature 98.4 F Pulse Rate 90 83 Respiratory 18 18 18 Rate Blood Pressure 118/85 127/91 O2 Sat by Pulse 99 100 Oximetry 10/22/20 01:07 Temperature Pulse Rate 87 Respiratory 17 Rate Blood Pressure 125/79 O2 Sat by Pulse 99 Oximetry EKG Findings - EKG Comments: EKG Findings:: Ventricular rate 100 bpm, GA interval 138 ms, QRS duration 82 ms, QT/QTC 348/448 ms. This is normal sinus with no ST elevation or depression appreciated <Daxa Kim Reid - Last Filed: 10/22/20 02:59> Medical Decision Making - Lab Data Result diagrams: 10/21/20 23:44 10/21/20 23:44 <Noni Kimwayne Mathews - Last Filed: 10/22/20 02:59> - Medical Decision Making EKG no acute findings. Troponin negative. D-dimer negative. Patient has low pretest probability of deep venous thrombosis. Patient is not tachycardic nor hypoxic she appears in no distress at this time she is requesting discharge and I feel she is stable for discharge with outpatient primary care follow-up in the next 24-48 hours with return for worsening symptoms. Patient is agreeable to this care plan as well as discharge at this time. Covid was negative (Daxa Kim) - Lab Data Lab Results 10/21/20 10/21/20 10/21/20 Range/Units 21:57 23:44 23:44 WBC 9.5 (3.8-10.6) k/uL RBC 4.90 (3.80-5.40) m/uL Hgb 14.8 (11.4-16.0) gm/dL Hct 44.1 (34.0-46.0) % MCV 89.9 (80.0-100.0) fL MCH 30.3 (25.0-35.0) pg MCHC 33.6 (31.0-37.0) g/dL RDW 12.9 (11.5-15.5) % Plt Count 186 (150-450) k/uL MPV 9.7 Neutrophils % 45 % Lymphocytes % 44 % Monocytes % 5 % Eosinophils % 4 % Basophils % 1 % Neutrophils # 4.2 (1.3-7.7) k/uL Lymphocytes # 4.2 (1.0-4.8) k/uL Monocytes # 0.5 (0-1.0) k/uL Eosinophils # 0.4 (0-0.7) k/uL Basophils # 0.1 (0-0.2) k/uL D-Dimer 0.37 (<0.60) mg/L FEU Sodium (137-145) mmol/L Potassium (3.5-5.1) mmol/L Chloride (98-107) mmol/L Carbon Dioxide (22-30) mmol/L Anion Gap mmol/L BUN (7-17) mg/dL Creatinine (0.52-1.04) mg/dL Est GFR (CKD-EPI)AfAm (>60 ml/min/1.73 sqM) Est GFR (CKD-EPI)NonAf (>60 ml/min/1.73 sqM) Glucose (74-99) mg/dL Calcium (8.4-10.2) mg/dL Total Bilirubin (0.2-1.3) mg/dL AST (14-36) U/L ALT (4-34) U/L Alkaline Phosphatase (38-126) U/L Troponin I (0.000-0.034) ng/mL Total Protein (6.3-8.2) g/dL Albumin (3.5-5.0) g/dL Coronavirus (PCR) Not Detected (Not Detectd) 10/21/20 10/21/20 Range/Units 23:44 23:44 WBC (3.8-10.6) k/uL RBC (3.80-5.40) m/uL Hgb (11.4-16.0) gm/dL Hct (34.0-46.0) % MCV (80.0-100.0) fL MCH (25.0-35.0) pg MCHC (31.0-37.0) g/dL RDW (11.5-15.5) % Plt Count (150-450) k/uL MPV Neutrophils % % Lymphocytes % % Monocytes % % Eosinophils % % Basophils % % Neutrophils # (1.3-7.7) k/uL Lymphocytes # (1.0-4.8) k/uL Monocytes # (0-1.0) k/uL Eosinophils # (0-0.7) k/uL Basophils # (0-0.2) k/uL D-Dimer (<0.60) mg/L FEU Sodium 135 L (137-145) mmol/L Potassium 3.9 (3.5-5.1) mmol/L Chloride 104 (98-107) mmol/L Carbon Dioxide 21 L (22-30) mmol/L Anion Gap 10 mmol/L BUN 12 (7-17) mg/dL Creatinine 0.77 (0.52-1.04) mg/dL Est GFR (CKD-EPI)AfAm >90 (>60 ml/min/1.73 sqM) Est GFR (CKD-EPI)NonAf >90 (>60 ml/min/1.73 sqM) Glucose 91 (74-99) mg/dL Calcium 9.1 (8.4-10.2) mg/dL Total Bilirubin 0.5 (0.2-1.3) mg/dL AST 23 (14-36) U/L ALT 20 (4-34) U/L Alkaline Phosphatase 68 (38-126) U/L Troponin I <0.012 (0.000-0.034) ng/mL Total Protein 7.4 (6.3-8.2) g/dL Albumin 4.5 (3.5-5.0) g/dL Coronavirus (PCR) (Not Detectd) Disposition <Greyson Glover - Last Filed: 10/21/20 18:52> Is patient prescribed a controlled substance at d/c from ED?: No Time of Disposition: 23:29 <Daxa Kim - Last Filed: 10/22/20 02:59> Clinical Impression: Cough, Chest discomfort Disposition: HOME SELF-CARE Condition: Good Instructions (If sedation given, give patient instructions): Acute Cough (ED) Additional Instructions: Please use medication as discussed. Please follow-up with family doctor in the next 2 days. Please return to emergency room if the symptoms increase or worsen or for any other concerns. Prescriptions: predniSONE 50 mg PO DAILY 3 Days #3 tab Referrals: Zuhair Jean MD [Primary Care Provider] - 1-2 days
[2020-10-21 18:55] VITALS: TEMP 98.4
--- NOTE | 2020-10-21 22:12 | XR ---
EXAMINATION TYPE: XR chest 2V DATE OF EXAM: 10/21/2020 COMPARISON: NONE HISTORY: Chest pain TECHNIQUE: 2 views FINDINGS: Heart and mediastinum are normal. Lungs are clear. Diaphragm is normal. Bony thorax appears normal. IMPRESSION: Normal chest.
[2020-10-21 23:56] LABS: Basophils # (A) 0.1 k/uL (0-0.2); Basophils % (A) 1 %; Eosinophils # (A) 0.4 k/uL (0-0.7); Eosinophils % (A) 4 %; HCT 44.1 % (34.0-46.0); HGB 14.8 gm/dL (11.4-16.0); Lymphocytes # (A) 4.2 k/uL (1.0-4.8); Lymphocytes % (A) 44 %; MCH 30.3 pg (25.0-35.0); MCHC 33.6 g/dL (31.0-37.0); MCV 89.9 fL (80.0-100.0); Mean Platelet Volume 9.7; Monocytes # (A) 0.5 k/uL (0-1.0); Monocytes % (A) 5 %; Neutrophils # (A) 4.2 k/uL (1.3-7.7); Neutrophils % (A) 45 %; Platelet Count 186 k/uL (150-450); RDW 12.9 % (11.5-15.5); WBC 9.5 k/uL (3.8-10.6)
[2020-10-22 00:03] LABS: ALT 20 U/L (4-34); AST 23 U/L (14-36); African American GFR (CKD) >90 (>60 ml/min/1.73 sqM); Albumin 4.5 g/dL (3.5-5.0); Alkaline Phosphatase 68 U/L (38-126); Anion Gap 10 mmol/L; Blood Urea Nitrogen 12 mg/dL (7-17); Calcium 9.1 mg/dL (8.4-10.2); Carbon Dioxide 21 mmol/L (22-30); Chloride 104 mmol/L (98-107); Glucose 91 mg/dL (74-99); Non-African American GFR(CKD) >90 (>60 ml/min/1.73 sqM); Potassium 3.9 mmol/L (3.5-5.1); Sodium 135 mmol/L (137-145); Total Bilirubin 0.5 mg/dL (0.2-1.3); Total Protein 7.4 g/dL (6.3-8.2)
[2020-10-22 01:08] VITALS: BP 125/79; PULSE 87; RESP 17
== END 2020-10-22 01:07 | disposition home or self-care (01) ==
LOC: EC 16:44
DX: R07.89 Other chest pain (principal); R05 Cough; F17.200 Nicotine dependence, unspecified, uncomplicated; Z20.822 Contact with and (suspected) exposure to COVID-19
CPT/HCPCS: 36415; 71046; 80053; 84484; 85025; 85379; 87635; 93005; 99285

== ENCOUNTER → 2020-10-31 | Outpatient (CLI) | payer OTHER ==
[2020-10-31 15:45] LABS: T4, Free (Free Thyroxine) 1.1 ng/dL (0.80-1.80)
== END | disposition home or self-care (01) ==
LOC: LABWHC1 07:36
PROVIDERS: ATTEND Internal Medicine
DX: L65.9 Nonscarring hair loss, unspecified (principal); R00.2 Palpitations
CPT/HCPCS: 36415; 84439; 84443; 84481

== ENCOUNTER → 2020-12-20 | Outpatient (CLI) | payer OTHER ==
[2020-12-20 14:51] LABS: Basophils # (A) 0.05 X 10*3/uL (0.00-0.10); Basophils % (A) 0.7 %; Eosinophils # (A) 0.26 X 10*3/uL (0.04-0.35); Eosinophils % (A) 3.5 %; HCT 45.4 % (37.2-46.3); HGB 14.8 g/dL (12.0-15.0); Lymphocytes # (A) 2.68 X 10*3/uL (0.90-5.00); Lymphocytes % (A) 36.2 %; MCH 29.2 pg (27.0-32.0); MCHC 32.6 g/dL (32.0-37.0); MCV 89.7 fL (80.0-97.0); Mean Platelet Volume 12.7 fL (9.5-12.2); Monocytes # (A) 0.57 X 10*3/uL (0.20-1.00); Monocytes % (A) 7.7 %; Neutrophils # (A) 3.83 X 10*3/uL (1.80-7.70); Neutrophils % (A) 51.6 %; Platelet Count 185 X 10*3/uL (140-440); RBC 5.06 X 10*6/uL (4.10-5.20); RDW 12.7 % (11.5-14.5); WBC 7.41 X 10*3/uL (4.50-10.00)
[2020-12-21 07:36] LABS: African American GFR (CKD) 101.6 (60.0-200.0); Albumin 4.5 g/dL (3.80-4.90); Albumin/Globulin Ratio 1.88 (1.60-3.17); Anion Gap 14.3 mmol/L (4.00-12.00); BUN/Creat Ratio 14.44 Ratio (12.00-20.00); Calcium 9.6 mg/dL (8.7-10.3); Carbon Dioxide 17.7 mmol/L (21.6-31.8); Globulin 2.4 g/dL (1.6-3.3); Non-African American GFR(CKD) 87.6 (60.0-200.0); Potassium 4.3 mmol/L (3.5-5.5); Total Bilirubin 0.5 mg/dL (0.3-1.2); Total Protein 6.9 g/dL (6.2-8.2)
== END | disposition home or self-care (01) ==
LOC: LABWHC1 10:55
PROVIDERS: ATTEND Nurse Practitioner Family
DX: L65.0 Telogen effluvium (principal); B07.0 Plantar wart; L84 Corns and callosities; R20.8 Other disturbances of skin sensation
CPT/HCPCS: 36415; 80053; 82306; 82626; 82652; 85025

== ENCOUNTER → 2020-12-20 | Outpatient (CLI) | payer OTHER ==
--- NOTE | 2020-12-21 14:44 | XR ---
EXAMINATION TYPE: XR cervical spine comp DATE OF EXAM: 12/20/2020 COMPARISON: NONE HISTORY: Pain and numbness TECHNIQUE: Four views are submitted. FINDINGS: The odontoid is intact. There are no compression deformities. The prevertebral soft tissue structur es are within normal limits. IMPRESSION: 1. No acute process. If symptoms persist consider MRI.
== END | disposition home or self-care (01) ==
LOC: RADXRMAIN 15:27
PROVIDERS: ATTEND Physician Assistant
DX: M54.2 Cervicalgia (principal)
CPT/HCPCS: 72050

== ENCOUNTER → 2020-12-25 | Outpatient (CLI) | payer OTHER | END | disposition home or self-care (01) | LOC: LABWHC1 16:29 | PROVIDERS: ATTEND Nurse Practitioner Family | DX: L65.0 Telogen effluvium (principal); B07.0 Plantar wart; L84 Corns and callosities; R20.8 Other disturbances of skin sensation | CPT/HCPCS: 36415; 84630 ==

== ENCOUNTER → 2021-01-08 | Outpatient (CLI) | payer OTHER ==
--- NOTE | 2021-01-08 23:25 | MR ---
EXAMINATION TYPE: MR cervical spine wo con DATE OF EXAM: 01/08/2021 COMPARISON: None HISTORY: Neck pain, headaches, LUE numbness. CONTRAST: Performed utilizing 0 mL intravenous Gadavist gadolinium contrast. TECHNIQUE: Multiplanar multiecho imaging on a 3.0 Heidy magnet is performed through the cervical spin e. FINDINGS: The craniovertebral junction is normal. Vertebral body alignment is normal. Disc heights appear preserved. Some mild disc desiccation within the mid cervical spine C3-4, C4-5, C5-6 is prese nt. C7-T1: No focal disc herniation or significant disc bulge is evident. No spinal canal stenosis or n eural foraminal stenosis is present. C6-7: No focal disc herniation or significant disc bulge is evident. No spinal canal stenosis or cornelius ral foraminal stenosis is present. C5-6: No focal disc herniation or significant disc bulge is evident. No spinal canal stenosis present . Mild foraminal narrowing from uncovertebral hypertrophy is present. C4-5: No focal disc herniation or significant disc bulge is evident. Vertebral joint hypertrophy with mild foraminal narrowing.. C3-4: There is some central protrusion with mild anterior thecal sac compression. No cord contact is evident. No spinal canal stenosis or neural foraminal stenosis is present.. C2-3: No focal disc herniation or significant disc bulge is evident. No spinal canal stenosis or cornelius ral foraminal stenosis is present. IMPRESSIONS: 1. Small central protrusion C3-4 without cord contact or spinal canal stenosis. 2. Uncovertebral joint hypertrophy contributing to mild foraminal narrowing C4-5 C5-6.
== END | disposition home or self-care (01) ==
LOC: RADMRIMAIN 21:07
PROVIDERS: ATTEND Internal Medicine
DX: M50.21 Other cervical disc displacement, high cervical region (principal); M47.812 Spondylosis without myelopathy or radiculopathy, cervical region; M99.71 Connective tissue and disc stenosis of intervertebral foramina of cervical region
CPT/HCPCS: 72141

== ENCOUNTER → 2021-12-16 | Outpatient (CLI) | payer OTHER ==
[2021-12-16 22:39] LABS: Basophils # (A) 0.04 X 10*3/uL (0.00-0.10); Basophils % (A) 0.5 %; Eosinophils # (A) 0.31 X 10*3/uL (0.04-0.35); Eosinophils % (A) 4.1 %; HGB 13.9 g/dL (12.0-15.0); Immature Grans, Automated 0.4 %; Lymphocytes # (A) 3.13 X 10*3/uL (0.90-5.00); Lymphocytes % (A) 41.8 %; MCHC 31.6 g/dL (32.0-37.0); MCV 91.7 fL (80.0-97.0); Mean Platelet Volume 12.4 fL (9.5-12.2); Monocytes # (A) 0.61 X 10*3/uL (0.20-1.00); Monocytes % (A) 8.2 %; NRBC Per 100 WBC 0 /100 WBCS (0.0-0.0); Neutrophils # (A) 3.36 X 10*3/uL (1.80-7.70); Platelet Count 197 X 10*3/uL (140-440); RDW 12.9 % (11.5-14.5); WBC 7.48 X 10*3/uL (4.50-10.00)
== END | disposition home or self-care (01) ==
LOC: LABPAT 13:44
PROVIDERS: ATTEND Obstetrics & Gynecology
DX: Z01.812 Encounter for preprocedural laboratory examination (principal)
CPT/HCPCS: 36415; 85025

== ENCOUNTER 2021-12-25 07:54 | Day surgery (SDC) | payer OTHER ==
--- NOTE | 2021-12-24 16:37 | P.HPOB ---
History of Present Illness H&P Date: 12/24/21 Chief Complaint: family planning 26 year old presents for laparoscopic tubal ligation. Review of Systems All systems: negative Constitutional: Denies chills, Denies fever Eyes: denies blurred vision, denies pain Ears, nose, mouth and throat: Denies headache, Denies sore throat Cardiovascular: Denies chest pain, Denies shortness of breath Respiratory: Denies cough Gastrointestinal: Denies abdominal pain, Denies diarrhea, Denies nausea, Denies vomiting Genitourinary: Denies dysuria, Denies hematuria Musculoskeletal: Denies myalgias Integumentary: Denies pruritus, Denies rash Neurological: Denies numbness, Denies weakness Psychiatric: Denies anxiety, Denies depression Endocrine: Denies fatigue, Denies weight change Past Medical History Past Medical History: Osteoarthritis (OA) Additional Past Medical History / Comment(s): Obstetric history: She's had 3 vag inal deliveries History of Any Multi-Drug Resistant Organisms: None Reported Past Surgical History: No Surgical Hx Reported Additional Past Surgical History / Comment(s): wisdom teeth removed Past Anesthesia/Blood Transfusion Reactions: Postoperative Nausea & Vomiting (PONV) Additional Past Anesthesia/Blood Transfusion Reaction / Comment(s): has had epidurals for childbirth, was slow to wake up after wisdom teeth removed Smoking Status: Current every day smoker - Past Family History Mother Family Medical History: No Reported History Father Additional Family Medical History / Comment(s): degenerative lumbar disk Medications and Allergies Home Medications Medication Instructions Recorded Confirmed Type Lincoln Oil 1 tab PO DAILY 12/24/21 History Allergies Allergy/AdvReac Type Severity Reaction Status Date / Time No Known Allergies Allergy Verified 12/24/21 12:57 Exam Osteopathic Statement: *. No significant issues noted on an osteopathic structural exam other than those noted in the History and Physical/Consult. Intake and Output 12/24/21 12/24/21 12/24/21 06:59 14:59 22:59 Other: Weight 100.244 kg HEart: RRR Lungs: CTAB Abdomen: soft, nontender Extremeties: neg akbar's Assessment and Plan (1) Family planning Status: Acute Code(s): Z30.09 - ENCOUNTER FOR OTH GENERAL CNSL AND ADVICE ON CONTRACEPTION SNOMED Code(s): 625232973 Plan: 1. laparoscopic tubal ligation
[~2021-12-25 07:54] MED LIST: DEXAMETHASONE SOD PHOSPHATE 4 MG/ML 1 ML VIAL IV ONE; HYDROmorphone 0.5 MG/0.5 ML SYRINGE IVP PRN; LACTATED RINGERS 1,000 ML IV SCH; ONDANSETRON 4 MG/2 ML VIAL IVP ONE; Pre Op ABX Message 1 EACH MISC MISCELLANE ONE
[2021-12-25] MEDS ORDERED: LIDOCAINE 1% (10MG/ML) FOR IV START INTRADERMA ONE (08:36)
[2021-12-25] MEDS ORDERED: SCOPOLAMINE 1 MG/72 HR PATCH TRANSDERM ONE (08:37)
[2021-12-25] MEDS ORDERED: KETOROLAC 15 MG/ML 1 ML VIAL ONE (09:37)
[2021-12-25] MEDS ORDERED: PROPOFOL 10 MG/ML 20 ML VIAL IV ONE (09:37)
[2021-12-25] MEDS ORDERED: LIDOCAINE 2% INJ 20 MG/ML (2 ML VIAL) ONE (09:37)
[2021-12-25] MEDS ORDERED: GLYCOPYRROLATE 0.2 MG/ML 2 ML VIAL ONE (09:37)
[2021-12-25] MEDS ORDERED: SUCCINYLCHOLINE CHLORIDE 100 MG/5 ML SYR IV ONE (09:37)
[2021-12-25] MEDS ORDERED: MIDAZOLAM 2 MG/2 ML VIAL ONE (09:37)
[2021-12-25] MEDS ORDERED: ROCURONIUM 10 MG/ML (5 ML VIAL) IV ONE (09:37)
[2021-12-25] MEDS ORDERED: NEOSTIGMINE 1 MG/ML 10 ML VIAL ONE (09:37)
[2021-12-25] MEDS ORDERED: fentaNYL (PF) 50 MCG/ML 2 ML AMP ONE (09:37)
[2021-12-25] MEDS ORDERED: BUPIVACAINE (PF) 0.25% 30 ML VIAL SQ ONE ×2 (10:11→10:17)
--- NOTE | 2021-12-25 10:50 | P.OP ---
Date of Procedure: 12/25/21 Preoperative Diagnosis: 1. family planning Postoperative Diagnosis: 1. family planning Procedure(s) Performed: Laparoscopic tubal ligation Anesthesia: PEDRO Surgeon: Cathy Frankel Estimated Blood Loss (ml): 1 IV fluids (ml): 500 Urine output (ml): 10 Pathology: none sent Condition: stable Disposition: PACU Operative Findings: Uterus sounded 8 cm. Normal uterus, tubes, ovaries. Description of Procedure: Patient was taken to the operating room where general anesthesia was obtained without difficulty. She was prepped and draped in normal sterile fashion in the dorsal lithotomy position, legs placed in the Neeraj stirrups. Bladder drained of all urine. Milton speculum placed in the vagina and the anterior lip the cervix was grasped with single-tooth tenaculum. The uterus is sounded to 8 cm a nd the kroner manipulator was placed. Attention was then turned to the abdomen and gloves were changed. A 10 mm infraumbilical incision was made the scalpel and 10 mm optical trocar was placed under direct visualization. A 5 mm suprapubic Incision was made and a 5 mm optical trocar was placed under direct visualization. Survey of the pelvis revealed normal uterus tubes and ovaries. The left fallopian tube was grasped with a Kleppinger and fulgurated 2-3 cm on this side in the ampullar portion. The right fallopian tube was grasped with a Kleppinger and fulgurated 2-3 cm in the ampullar portion. All instruments were then removed from the abdomen and vagina. The 10 mm infraumbilical incision was closed with 0 Vicryl and the fascial layer and then 4-0 Vicryl in a subcuticular fashion. The 5 mm incision was closed with 4-0 Vicryl in a subcuticular fashion. Patient tolerated procedure well, sponge and instrument counts correct 2 and she was taken to recovery room in stable condition.
[2021-12-25 11:03] VITALS: RESP 16; TEMP 97
[2021-12-25 11:29] VITALS: PULSE 70
[2021-12-25] MEDS ORDERED: HYDROcodone/APAP 7.5-325MG 1 EACH TAB ONE (11:35)
[2021-12-25] MEDS ORDERED: HYDROcodone/APAP 7.5-325MG 1 EACH TAB PO ONE (11:37)
[2021-12-25 11:49] VITALS: BP 112/73
== END 2021-12-25 12:24 | disposition home or self-care (01) ==
LOC: OR 07:54
PROVIDERS: ATTEND Obstetrics & Gynecology
DX: Z30.2 Encounter for sterilization (principal); M19.90 Unspecified osteoarthritis, unspecified site; F17.200 Nicotine dependence, unspecified, uncomplicated
CPT/HCPCS: 81025; 58670; J2250; J1100; J2710; J2405; J3010; J1885; J0330; J2704; J2001

== ENCOUNTER 2025-01-01 19:30 | Emergency (ER) | payer OTHER ==
[2025-01-01 19:35] VITALS: BP 142/90; PULSE 116; RESP 18; TEMP 98
--- NOTE | 2025-01-01 20:01 | ED ---
Neuro HPI - General Chief Complaint: Neuro Symptoms/Deficit Stated Complaint: Left side Facial Numbness,Slurred speech Time Seen by Provider: 01/01/25 19:43 Source: patient, RN notes reviewed, old records reviewed Mode of arrival: ambulatory Limitations: no limitations - History of Present Illness Is the patient presenting with stroke symptoms?: Yes -: hour(s) Initial Comments: This is a 29-year-old female to ER for facial weakness, patient feels numbness tingling left side of face with little bit of drooling symptoms were noted by her mother who is at bedside with this patient. Patient is having difficulty with smiling she states she initially noted the symptoms when she went to [employer] for her dogs and was able to whistle, no history of medical complaints no high blood pressure high cholesterol diabetes no recent trauma no headache Location: left face History of same: No Place: home Severity: severe Quality: weak, numb, tingling Improves With: none Worsens With: none Associated Symptoms: denies other symptoms Treatments Prior to Arrival: none - Related Data Home Medications: Home Medications Medication Instructions Recorded Confirmed Lee Oil 1 tab PO DAILY 12/24/21 12/25/21 Previous Rx's Medication Instructions Recorded HYDROcodone/APAP 7.5-325MG [Beryl 1 tab PO Q6HR PRN 3 Days #12 tab 12/25/21 7.5-325] Ibuprofen [Motrin] 600 mg PO Q6HR PRN #30 tab 12/25/21 predniSONE [Deltasone] 80 mg PO DAILY #28 tab 01/01/25 valACYclovir HCL [Valacyclovir] 1,000 mg PO TID #21 tab 01/01/25 Allergies/Adverse Reactions: Allergies Allergy/AdvReac Type Severity Reaction Status Date / Time No Known Allergies Allergy Verified 01/01/25 19:35 Review of Systems ROS Statement: Those systems with pertinent positive or pertinent negative responses have been documented in the HPI. ROS Other: All systems not noted in ROS Statement are negative. General Exam Limitations: no limitations General appearance: alert, in no apparent distress Head exam: Present: atraumatic, normocephalic, normal inspection Eye exam: Present: normal appearance, PERRL, EOMI. Absent: scleral icterus, conjunctival injection, periorbital swelling ENT exam: Present: normal exam, mucous membranes moist Neck exam: Present: normal inspection. Absent: tenderness, meningismus, lymphadenopathy Respiratory exam: Present: normal lung sounds bilaterally. Absent: respiratory distress, wheezes, rales, rhonchi, stridor Cardiovascular Exam: Present: regular rate, normal rhythm, normal heart sounds. Absent: systolic murmur, diastolic murmur, rubs, gallop, clicks GI/Abdominal exam: Present: soft, normal bowel sounds. Absent: distended, tenderness, guarding, rebound, rigid Extremities exam: Present: normal inspection, full ROM, normal capillary refill. Absent: tenderness, pedal edema, joint swelling, calf tenderness Back exam: Present: normal inspection Neurological exam: Present: alert, oriented X3, CN II-XII intact Psychiatric exam: Present: normal affect, normal mood Skin exam: Present: warm, dry, intact, normal color. Absent: rash Stroke MDM - NIH Stroke Scale 1a. Level of Consciousness: (0) alert 1b. LOC Questions: (0) answers correctly 1c. LOC Commands: (0) performs tasks correctly 2. Best Gaze: (0) normal 3. Visual: (0) no visual loss 4. Facial Palsy: (2) partial paralysis 5a. Motor Arm Left: (0) no drift 5b. Motor Arm Right: (0) no drift 6a. Motor Leg Left: (0) no drift 6b. Motor Leg Right: (0) no drift 7. Limb Ataxia: (0) absent 8. Sensory: (0) normal 9. Best Language: (0) no aphasia 10. Dysarthria: (0) normal 11. Extinction/Inattention: (0) no abnormality - Thrombolytic Inclusion/Exclusion Thrombolytic Exclusion Criteria: Symptom Onset > 4.5 Hours - Medical Decision Making 29 female to ER for evaluation of left-sided facial numbness tingling weakness difficulty closing left eye does have forehead paralysis unable to raise left eye. Patient symptoms are improved and patient can be discharged home Past Medical History Past Medical History: No Reported History Additional Past Medical History / Comment(s): Obstetric history: She's had 2 previous vaginal deliveries. This is her third . She's had care with me since the first trimester. Blood type A+, antibody is negative, rubella immune, hepatitis B-, HIV nonreactive, RPR nonreactive, GBS negative. History of Any Multi-Drug Resistant Organisms: None Reported Past Surgical History: No Surgical Hx Reported Past Anesthesia/Blood Transfusion Reactions: No Reported Reaction Past Psychological History: No Psychological Hx Reported Smoking Status: Never smoker Past Alcohol Use History: Rare Past Drug Use History: Marijuana - Past Family History Mother Family Medical History: No Reported History Father Additional Family Medical History / Comment(s): degenerative lumbar disk Course Vital Signs 01/01/25 19:32 Temperature 98 F Pulse Rate 116 H Respiratory 18 Rate Blood Pressure 142/90 O2 Sat by Pulse 99 Oximetry - Reevaluation(s) Reevaluation #1: Medical records reviewed Reevaluation #2: Patient symptoms unchanged Reevaluation #3: Patient informed of results questions answered Reevaluation #4: Was pt. sent in by a medical professional or institution (, [facility], MANAGER CAFE, urgent care, hospital, or [facility]...) When possible be specific @ -no Did you speak to anyone other than the patient for history (EMS, parent, family, police, friend...)? What history was obtained from this source @ -no Did you review nursing and triage notes (agree or disagree)? Why? @ -agree Are old charts reviewed (outside hosp., previous admission, EMS record, old EKG, old radiological studies, urgent care reports/EKG's, [facility] records)? Report findings @ -yes Differential Diagnosis (chest pain, altered mental status, abdominal pain women, abdominal pain men, vaginal bleeding, weakness, fever, dyspnea, syncope, headache, dizziness, GI bleed, back pain, seizure, CVA, palpatations, mental health, musculoskeletal)? @ -prior EKG interpreted by me (3pts min.). @ -no X-rays interpreted by me (1pt min.). @ -no CT interpreted by me (1pt min.). @ -no U/S interpreted by me (1pt. min.). @ -no What testing was considered but not performed or refused? (CT, X-rays, U/S, labs)? Why? @ -none What meds were considered but not given or refused? Why? @ -none Did you discuss the management of the patient with other professionals (professionals i.e. GUS Hernandez, MANAGER CAFE, lab, RT, psych nurse, manager social services, phlebotomist associate, teacher, fisheries officer, case preparer and liner)? Give summary @ -no Was smoking cessation discussed for >3mins.? @ -no Was critical care preformed (if so, how long)? @ -no Were there social determinants of health that impacted care today? How? (Homelessness, low income, unemployed, alcoholism, drug addiction, transporta tion, low edu. Level, literacy, decrease access to med. care, [place] [facility], rehab)? @ -none Was there de-escalation of care discussed even if they declined (Discuss DNR or withdrawal of care, Hospice)? DNR status @ -no What co-morbidities impacted this encounter? (DM, HTN, Smoking, COPD, CAD, Cancer, CVA, ARF, Chemo, Hep., AIDS, mental health diagnosis, sleep apnea, morbid obesity)? @ -none Was patient admitted / discharged? Hospital course, mention meds given and route, prescriptions, significant lab abnormalities, going to OR and other pertinent info. @ - 29 female to ER for evaluation of left-sided facial numbness tingling weakness difficulty closing left eye does have forehead paralysis unable to raise left eye. Patient symptoms are improved and patient can be discharged home Discharge Undiagnosed new problem with uncertain prognosis? @ -no Drug Therapy requiring intensive monitoring for toxicity (Heparin, Nitro, Insulin, Cardizem)? @ -no Were any procedures done? @ -no Diagnosis/symptom? @ -De Jesus's palsy Acute, or Chronic, or Acute on Chronic? @ -Acute Uncomplicated (without systemic symptoms) or Complicated (systemic symptoms)? @ -Complicated Side effects of treatment? @ -no Exacerbation, Progression, or Severe Exacerbation? @ -exacerbation Poses a threat to life or bodily function? How? (Chest pain, USA, MA, pneumonia, PE, COPD, DKA, ARF, appy, cholecystitis, CVA, Diverticulitis, Homicidal, Suicidal, threat to staff... and all critical care pts) @ -no Reevaluation #5: Differential CVA Ischemic stroke, hemorrhagic stroke, brain tumor, atypical migraine, Wernicke's encephalopathy, seizure, multiple sclerosis, meningitis, encephalitis, hypoglycemia, Guillain-Denise, electrolytes disturbance, myasthenia gravis.... This is not meant to be an all-inclusive list Disposition Clinical Impression: De Jesus's palsy Disposition: HOME SELF-CARE Condition: Good Instructions (If sedation given, give patient instructions): De Jesus Palsy (ED) Prescriptions: predniSONE [Deltasone] 80 mg PO DAILY #28 tab valACYclovir HCL [Valacyclovir] 1,000 mg PO TID #21 tab Is patient prescribed a controlled substance at d/c from ED?: No Referrals: None,Stated [Primary Care Provider] - 1-2 days Time of Disposition: 20:00
[2025-01-01] MEDS: dexAMETHasone 2 MG TAB PO STA (20:17)
[2025-01-01] MEDS: valACYclovir HCL 1,000 MG TABLET PO STA (20:18)
== END 2025-01-01 20:24 | disposition home or self-care (01) ==
LOC: EC 19:30
DX: G51.0 Bell's palsy (principal)
CPT/HCPCS: 99283; J8540

== ENCOUNTER → 2025-01-25 | Outpatient (CLI) | payer OTHER ==
--- NOTE | 2025-01-25 14:41 | US ---
EXAMINATION TYPE: US thyroid st tissue head/neck DATE OF EXAM: 01/25/2025 COMPARISON: NONE CLINICAL INDICATION: Female, 29 years old with history of Z91.89 OTH PERSONAL RISK FACTORS, NOT ELSE WHERE C; mother has thyroid issues. TECHNIQUE: Grayscale and color Doppler imaging of the thyroid gland. FINDINGS: GLAND SIZE: Right Lobe: 4.7 x 1.5 x 1.9 cm Overall Parenchyma: homogeneous Left Lobe: 4.5 x 1.1 x 1.4 cm Overall Parenchyma: homogeneous Isthmus Thickness: 0.4 cm NODULES RIGHT: # of nodules measured on right: 0 LEFT: # of nodules measured on left: 0 ISTHMUS: # of nodules measured in the isthmus: 0 Bilateral neck scanned, no evidence of lymphadenopathy. IMPRESSION: Unremarkable thyroid gland without discrete nodule. [facility], , 01/25/2025 2:38 PM
--- NOTE | 2025-01-25 14:44 | US ---
EXAMINATION TYPE: US carotid duplex BILAT DATE OF EXAM: 01/25/2025 COMPARISON: NONE CLINICAL INDICATION: Female, 29 years old with history of Z91.89 OTH PERSONAL RISK FACTORS, NOT ELSE WHERE C; patient has no symptoms, she stated family history of blockages Additional History: .... TECHNIQUE: Grayscale, color Doppler and spectral Doppler evaluation of the bilateral carotid systems and vertebral arteries. Indirect Doppler criteria was utilized. FINDINGS: EXAM MEASUREMENTS: RIGHT: Peak Systolic Velocity (PSV) cm/sec ----- Right CCA: 136.0 ----- Right ICA: 113.0 ----- Right ECA: 109.0 ICA/CCA ratio: 0.8 RIGHT: End Diastole cm/sec ----- Right CCA: 32.8 ----- Right ICA: 36.7 ----- Right ECA: 25.3 LEFT: Peak Systolic Velocity (PSV) cm/sec ----- Left CCA: 116.0 ----- Left ICA: 139.0 ----- Left ECA: 162.0 ICA/CCA ratio: 1.2 LEFT: End Diastole cm/sec ----- Left CCA: 35.4 ----- Left ICA: 36.9 ----- Left ECA: 25.3 VERTEBRALS (direction of flow): Right Vertebral: Antegrade Left Vertebral: Antegrade Rhythm: Normal COLD ROLLER NOTES: Mild homogeneous plaque with no significant stenosis Color Doppler imaging shows patency with blood flow throughout the carotid artery. Spectral waveforms are within normal limits. IMPRESSION: Right: No hemodynamically significant stenosis. Left: No hemodynamically significant stenosis. Criteria for Assigning % of Stenosis / Diameter reduction (Estimation based on the indirect measurements of the internal carotid artery velocities (ICA PSV). 1. Normal (no stenosis)=ICA PSV < 180 cm/s: ratio < 2.0: ICA EDV<40 cm/s. 2. Less than 50% stenosis=ICA PSV < 180 cm/s: ratio < 2.0: ICA EDV<40 cm/s. 3. 50 to 69% stenosis=ICA PSV of 180 to 230 cm/s: ration 2.0 ? 4.0: ICA EDV 40-100 cm/s. PSV 125-180 cm/sec and ICA/CCA PSV Ratio ? 2.0 is also consistent with 50-69% stenosis 4. Greater than 70% stenosis to near occlusion= ICA PSV > 230 cm/s: ratio > 4.0: ICA EDV > 100 cm/s. 5. Near occlusion= ICA PSV velocities may be low or undetectable: variable ratio and ICA EDV. 6. Total occlusion=unable to detect flow. [facility], , 01/25/2025 2:41 PM
== END | disposition home or self-care (01) ==
LOC: RADUSWWP 14:04
PROVIDERS: ATTEND Family Medicine
DX: R22.1 Localized swelling, mass and lump, neck (principal); Z91.89 Other specified personal risk factors, not elsewhere classified
CPT/HCPCS: 76536; 93880